=== PATIENT | female | born 1955 | race Caucasian/White ===

== ENCOUNTER 2020-09-11 12:39 | Inpatient (IN) | payer SELFPAY ==
[2020-09-11] MEDS ORDERED: Morphine 4 MG/ML VIAL ONE ×2 (14:06→20:53)
--- NOTE | 2020-09-11 14:08 | HP ---
HISTORY OF PRESENT ILLNESS: Demetria Gastelum is a 65-year-old female, who lives alone in [place], presented to [place] with 2 days of abdominal pain in the right upper quadrant, nausea and vomiting. This did not radiate. She presented to the emergency room and had an ultrasound of her gallbladder noting a gallbladder wall thickening, but no pericholecystic fluid, no report of a sonographic Sharpe sign and no gallstones. Liver function tests were normal. She had a fever to 102 degrees. Chest x-ray was read as normal. The patient does smoke 5-10 cigarettes a day, but no acute process was noted. Her sats were noted to be slightly low. She was sent for consideration of cholecystectomy outpatient surgery, but after talking to her, I examined her. I think she needs more workup and she will be admitted for HIDA scan without ejection fraction to rule out acute cholecystitis and a CAT scan of the abdomen and pelvis. Rapid COVID screen will be obtained. ALLERGIES: NONE. SOCIAL HISTORY: Tobacco 5-10 cigarettes a day. Alcohol occasionally. PAST SURGICAL HISTORY: Tubal ligation. PAST MEDICAL HISTORY: Colonoscopy and she never has had. MEDICATIONS: None routinely. REVIEW OF SYSTEMS: Ten-point noncontributory. FAMILY HISTORY: Noncontributory. PHYSICAL EXAMINATION: HEAD EARS, EYES, NOSE AND THROAT: Unremarkable. LUNGS: Clear to auscultation. No wheezing. CARDIAC: Regular rate and rhythm without murmur or gallop. ABDOMEN: Soft. Tenderness in right upper quadrant. Mild guarding. No peritoneal signs. EXTREMITIES: Unremarkable. Sodium 135, potassium 3.6, BUN 7, creatinine 0.82. Liver function tests are normal. The patient's white count is 12, hemoglobin 13. ASSESSMENT AND PLAN: 1. Abdominal pain of uncertain etiology. We will obtain HIDA scan and CAT scan of the abdomen and pelvis. We will base further recommendations both on clinical course. 2. Admission with PPIs, Lovenox prophylaxis, incentive spirometer and activity. Await further testing. Job ID: [id number]
--- NOTE | 2020-09-11 17:34 | CT ---
CT Abdomen Pelvis W Con History: Right upper quadrant pain Comparison: Ultrasound same day Findings: Mild scarring in the lung bases. No significant pericardial effusion. Mild gallbladder wall distention without pericholecystic inflammation. There appears be a contained perforation of ruptured appendicitis. The cecum is in the right upper qu adrant of the abdomen along with the ruptured appendix which has a appendicolith at its base. The appendix is retrocecal. Appendicolith is best seen on coronal image 70 with the course of the appendi x extending craniad from 70-82 in the right upper quadrant on the coronal images. Lower thoracic spine compression deformities. No free intraperitoneal fluid. No hydronephrosis. There is some inflammation from the ruptured appendix extending along the retroper itoneum on the right ureter. Aortic contour is nonaneurysmal. Impression: 1. Ruptured appendicitis which is retrocecal and extends into the right upper quadrant of the abdomen with contained perforation containing small foci of gas within appendicolith at the appendiceal base. Surgical consultation advised. No drainable fluid collection. 2. Mildly distended gallbladder without evidence for acute cholecystitis. 3. Pancreatic duct size upper limits of normal with very mildly prominent intrahepatic biliary dilata tion can be seen with papillary stenosis.
--- NOTE | 2020-09-11 20:38 | NM ---
NM Hida (No EF) History: Concern for cholecystitis Comparison: CT exam same day Findings: Patient was pretreated with 1.2 mcg CCK. Subsequently patient was given 5.2 mCi technetium 99m mebrofenin. Imaging of the abdomen was performed. The gallbladder is visualized after adequate hepatic uptake of radiotracer. On the 2 hour delayed images the bowel is visualized. Impression: 1. Patent cystic and common bile ducts. 2. Mildly patulous distended gallbladder.
[2020-09-11] MEDS ORDERED: Ketorolac Tromethamine 30 MG/ML VIAL ONE (20:53)
[2020-09-11] MEDS ORDERED: Acetaminophen 500 MG TAB ONE (21:12)
[2020-09-11] MEDS ORDERED: Ketorolac Tromethamine 30 MG/ML VIAL IVP PRN (22:41)
[2020-09-11] MEDS: Sodium Chloride 0.9% 1,000 ML IV SCH (23:15)
[2020-09-12] MEDS: Piperacillin/Tazobactam 4.5 GM in Sodium Chloride 0.9% 100 ML IVPB SCH ×6 (00:40→18:05)
[2020-09-12 00:49] VITALS: BMI 21.9
[2020-09-12] MEDS: Morphine 4 MG/ML VIAL SLOW IVP PRN ×3 (06:42→18:05)
[2020-09-12] MEDS: Sodium Chloride 0.9% 1,000 ML IV SCH ×3 (06:45→14:02)
[2020-09-12] MEDS: Pantoprazole 40 MG VIAL IVP SCH ×3 (08:58→13:16)
[2020-09-12] MEDS ORDERED: Fentanyl 100 MCG/2 ML VIAL ONE ×2 (09:14→11:01)
[2020-09-12] MEDS ORDERED: Bupivacaine PF 0.5% 30 ML VIAL ONE (09:16)
[2020-09-12] MEDS ORDERED: Lidocaine 1% w/Epinephrine 1:100K 20 ML VIAL ONE (09:16)
[2020-09-12] MEDS ORDERED: Rocuronium Bromide 10 MG/ML (10ML VIAL) ONE (09:21)
[2020-09-12] MEDS ORDERED: Succinylcholine 200 MG/10 ml SYRINGE FS ONE (09:21)
[2020-09-12] MEDS ORDERED: Lidocaine 1% PF 5 ML VIAL ONE (09:21)
[2020-09-12] MEDS ORDERED: Ondansetron PF 4 MG/2 ML Vial ONE (09:21)
[2020-09-12] MEDS ORDERED: PROPOFOL 200 MG/20 ML VIAL ONE (09:21)
[2020-09-12] MEDS ORDERED: Ketorolac Tromethamine 30 MG/ML VIAL ONE (09:21)
[2020-09-12] MEDS ORDERED: Dexamethasone 20 MG/5 ML VIAL ONE (09:21)
--- NOTE | 2020-09-12 10:11 | PRG ---
DATE OF SERVICE: 09/12/2020 Ms. High underwent a HIDA scan yesterday because the admitting diagnosis was cholecystitis, although when she received transfer from [facility] [place], she had never had any biliary symptoms in the past. Review of the CAT scan revealed that she only had gallbladder wall thickening, but no gallstones and I was told that she had a sonographic positive Sharpe's, which was not recorded. CAT scan was obtained revealing appendicitis. This resulted at 1700 hours, however, I was not notified. When I became aware of the results at 2200 hours, decision was made to admit her and place her on intravenous antibiotics for her appendectomy today. HIDA scan was performed and was normal. The patient does not need cholecystectomy. The patient has been afebrile overnight. Her white count was 12 yesterday. Abdomen is soft, tenderness in the right abdomen. ASSESSMENT: Appendicitis with retrocecal appendix extending up towards the right upper quadrant. She has an appendicolith. PLAN: Laparoscopic appendectomy today. She understands risks and benefits and consents. Depending on the condition of her appendix and findings operatively, she may be able to go home later today or tomorrow. Job ID: [id number]
[2020-09-12] MEDS ORDERED: SUGAMMADEX SODIUM 200 MG/2 ML VIAL ONE (10:23)
[2020-09-12] MEDS ORDERED: traMADol HCl 50 MG TAB PO PRN ×2 (10:36)
[2020-09-12] MEDS ORDERED: Ibuprofen 600 MG TAB PO PRN (10:36)
[2020-09-12] MEDS ORDERED: HYDROmorphone 2 MG/ML VIAL SLOW IVP PRN (10:49)
[2020-09-12] MEDS ORDERED: Ondansetron HCl/PF 4 MG/2 ML Vial IVP PRN (10:49)
[2020-09-12] MEDS ORDERED: Promethazine HCl 25 MG/ML VIAL SLOW IVP PRN (10:49)
--- NOTE | 2020-09-12 11:46 | OP ---
DATE OF PROCEDURE: 09/12/2020 PREOPERATIVE DIAGNOSIS: Acute appendicitis. POSTOPERATIVE DIAGNOSIS: Acute appendicitis with small abscess. PROCEDURE PERFORMED: Laparoscopic video appendectomy, drainage of abscess, placement of a #19 Gold ALICIA drain. ANESTHESIA: General, local 0.5% Marcaine 30 mL mixed with 1% Xylocaine with epinephrine 20 mL. FINDINGS: Acute appendicitis, retrocecal, loculated with acute appendicitis, gangrenous. DESCRIPTION OF PROCEDURE: The patient was taken to the operating room, where under general anesthesia, abdomen was prepared with ChloraPrep and draped in routine fashion. De Luna catheter placed at the beginning of the procedure and removed at the end. Local anesthetic was infiltrated in the skin and subcutaneous tissue about all port sites. An infraumbilical incision made, pneumoperitoneum to 15 mmHg was obtained with a Veress needle, replaced with a 5 port and the laparoscope inserted. Right lateral subcostal incision made and a 5 port placed. Suprapubic incision made and a 12 port placed. Cecum, right colon mobilized medially. High retrocecal was an acutely inflamed gangrenous appendix with a small abscess. Abscess was evacuated. Appendix dissected free. Mesoappendix taken down with the LigaSure. Cecal stump divided with Endo-PAIGE blue load stapler. Staple line was hemostatic and secured. Appendix was placed in Endobag and removed. The abscess wall cavity irrigated thoroughly. Irrigant evacuated. Good hemostasis noted. A 19 Gold ALICIA drain placed in the right gutter and secured at its exit site in the right subcostal port site with 3-0 nylon. Sterile dressing applied. Irrigant and pneumoperitoneum evacuated. All instruments were removed after suprapubic fascia was approximated with 0 Vicryl GraNee needle. Skin incisions were approximated with interrupted subdermal 4-0 Monocryl and [place] glue applied. Job ID: [id number]
[2020-09-12] MEDS ORDERED: Enoxaparin Sodium 40 MG/0.4 ML SYRINGE SC SCH (21:00)
[2020-09-13] MEDS: Sodium Chloride 0.9% 1,000 ML IV SCH ×3 (00:40→14:42)
[2020-09-13] MEDS: Piperacillin/Tazobactam 4.5 GM in Sodium Chloride 0.9% 100 ML IVPB SCH ×4 (01:34→17:39)
[2020-09-13 06:38] LABS: #Basophils 0.1 thou/uL (0.0-0.2); #Monocytes 0.5 thou/uL (0.11-0.59); %Eosinophils 0.1 % (0.0-10.0); %Lymphocytes 11.8 % (21.0-51.0); %Monocytes 6.1 % (0.0-10.0); Hemoglobin 11.9 g/dL (12.0-16.0); Mean Corpuscular HGB CONC 32.7 g/dL (32.0-36.0); Mean Corpuscular Hemoglobin 32.4 pg (27.0-31.0); Mean Corpuscular Volume 99.2 fL (78.0-98.0); Platelet Count 190 thou/uL (130-400); RBC Distribution Width 13.4 % (11.5-14.5); Red Blood Cell (RBC) Count 3.69 mill/uL (4.20-5.40); White Blood Cell (WBC) Count 8.7 thou/uL (4.8-10.8)
[2020-09-13 07:01] LABS: Anion Gap 15 mmol/L (10-20); BUN (Urea Nitrogen) 12 mg/dL (9.8-20.1); Calc. Creatinine Clearance 72 mL/min (70-130); Calcium 8.5 mg/dL (7.8-10.44); Carbon Dioxide 23 mmol/L (23-31); Chloride 103 mmol/L (98-107); Glucose 131 mg/dL (80-115); Potassium 3.6 mmol/L (3.5-5.1); Sodium 137 mmol/L (136-145)
[2020-09-13] MEDS: Pantoprazole 40 MG VIAL IVP SCH (08:22)
[2020-09-13] MEDS: Morphine 4 MG/ML VIAL SLOW IVP PRN ×2 (08:22→16:37)
[2020-09-13] MEDS ORDERED: Polyethylene Glycol 3350 17 GM Packet PO SCH (09:00)
[2020-09-13 17:37] VITALS: BP 133/86; TEMP 98.3
[2020-09-13] MEDS ORDERED: Amoxicillin/Potassium Clav 500 MG TAB PO SCH (21:00)
--- NOTE | 2020-09-14 11:50 | DIS ---
DATE OF ADMISSION: 09/11/2020 DATE OF DISCHARGE: 09/13/2020 DISCHARGE DIAGNOSIS: Acute appendicitis with small abscess. DISCHARGE MEDICATIONS: 1. OTC Tylenol. 2. Motrin p.r.n. pain. 3. Ultram to fill if needed, #21 refill. 4. Augmentin 500 b.i.d. for 5 days. DISCHARGE INSTRUCTIONS: Follow up in 2-3 weeks. She can remove her own suture that held her drain in place. Drain removed prior to discharge. HISTORY: 65-year-old female with right upper quadrant pain presents to [facility], underwent ultrasound noting gallbladder wall thickness. No stones. ER doctor presented me that she had sonographic positive Sharpe sign, which was not recorded on the ultrasound report. When I saw her, her exam and history was atypical for biliary colic. Thus, she was admitted, underwent a HIDA scan that was normal. CAT scan of the abdomen and pelvis revealed appendicitis. The patient was taken for laparoscopic video appendectomy and postoperatively did fine. ALICIA drain was left overnight and removed at time of discharge, it had only serosanguineous drainage. Her white count returned to normal. She tolerated diet. She is sent home with Augmentin for 5 days, and follow up my office in 1-2 weeks. Diet and activity as tolerated. Shower and bathe whenever. Job ID: [id number]
[2020-09-16] MEDS ORDERED: Acetaminophen 500 MG TAB PO PRN (23:00)
== END 2020-09-13 19:25 | disposition home or self-care (01) | DRG 340 ==
LOC: SDC 12:39 → T4-A 14:01
PROVIDERS: ADMIT Specialist; ATTEND Specialist
PROC: 0DTJ4ZZ Resection of Appendix, Percutaneous Endoscopic Approach (ICD-10-PCS; principal; 2020-09-12)
PROC: 0D9J4ZZ Drainage of Appendix, Percutaneous Endoscopic Approach (ICD-10-PCS; 2020-09-12)
DX: K35.33 Acute appendicitis with perforation, localized peritonitis, and gangrene, with abscess (principal); K38.1 Appendicular concretions; F17.210 Nicotine dependence, cigarettes, uncomplicated; Z98.51 Tubal ligation status
CPT/HCPCS: 36415; 74177; 78226; 80048; 85025; 88304; 93005; 93010; A9537; C9113; J1100; J1885; J2270; J2405; J2543; J2704; J3010; J3490; S0020

== ENCOUNTER 2024-11-23 15:24 | Observation (INO) | payer MEDICARE ==
[~2024-11-23 15:24] MED LIST: Iopamidol-370 76% 500 ML MDV (1 ML CHARGE) ONE; Magnevist 469MG/ML 20 ML VIAL ONE
[2024-11-23 16:10] LABS: #Basophils 0.04 10x3/uL (0.0-0.2); #Eosinophils Less than 0.03 10x3/uL (0.0-0.7); %Basophils 0.4 % (0.0-1.0); %Lymphocytes 8.6 % (21.0-51.0); %Neutrophils 87.6 % (42.0-75.0); Hematocrit 38.3 % (36.0-47.0); Hemoglobin 12.8 g/dL (12.0-16.0); Mean Corpuscular HGB CONC 33.4 g/dL (32.0-36.0); Mean Corpuscular Hemoglobin 29.8 pg (27.0-31.0); Mean Corpuscular Volume 89.1 fL (78.0-98.0); Mean Platelet Volume 9.9 fL (7.4-10.4); Platelet Count 240 10x3/uL (130-400); RBC Distribution Width 13.4 % (11.5-14.5)
[2024-11-23 16:30] LABS: Lipase 27 U/L (8-78)
[2024-11-23 16:32] LABS: Acetaminophen Less than 10 mcg/mL (Less than 10); Alcohol Less than 10.0 mg/dL (Less than 10); Salicylate Less than 8.0 mg/dL (Less than 8.0)
[2024-11-23 16:34] LABS: ALT (SGPT) 8 U/L (Less than 34); AST (SGOT) 22 U/L (11-34); Albumin 4.2 g/dL (3.1-4.5); Alkaline Phosphatase 97 U/L (40-110); Anion Gap 15 mmol/L (10-20); BUN (Urea Nitrogen) 8 mg/dL (9.8-20.1); Bilirubin, Total 0.4 mg/dL (0.3-1.2); CK (CPK) 388 U/L (29-168); Calc. Creatinine Clearance 0 mL/min (70-130); Calcium 9.1 mg/dL (7.8-10.44); Carbon Dioxide 23 mmol/L (23-31); Chloride 98 mmol/L (98-107); Estimated GFR 95; Globulin 3.6 g/dL (2.4-3.5); Glucose 128 mg/dL (80-115); Potassium 4.1 mmol/L (3.5-5.1); Protein, Total 7.8 g/dL (5.8-8.1); Sodium 132 mmol/L (136-145)
[2024-11-23 16:35] LABS: Troponin I 0.036 ng/mL (< 0.028)
[2024-11-23 18:20] LABS: Bacteria/HPF None Seen HPF (None Seen); Bilirubin Negative (Negative); Blood, Urine 2+ (Negative); CAUTI Indications for Culture Alt mental st,lethar; Clarity Clear (Clear); Glucose, Urine (Dipstick) Normal (Negative); Ketone, Urine Trace mg/dL (Negative); Leukocyte Negative Leu/uL (Negative); Nitrite Negative (Negative); Protein, Urine (Dipstick) 100 mg/dL (Neg-Trace); RBC/HPF 0-3 HPF (0-3); Specific Gravity, Urine 1.011 (1.002-1.036); Squamous Epithelial 0-3 HPF (0-3); Urobilinogen Normal mg/dL (Less than 2); WBC/HPF 0-3 HPF (0-3); pH, Urine 5.5 (5.0-9.0)
[2024-11-23 18:21] LABS: Urine Culture Reflex No No
[2024-11-23 18:22] LABS: Amphetamine Not Detected (NotDetected); Barbiturates Screen Not Detected (NotDetected); Benzodiazepine Screen Not Detected (NotDetected); Cocaine Metabolite Screen Not Detected (NotDetected); Methadone Not Detected (NotDetected); Methamphetamine Not Detected (NotDetected); Opiate Screen Not Detected (NotDetected); Oxycodone Screen Not Detected (NotDetected); Phencyclidine (PCP) Not Detected (NotDetected); THC/Cannabinoid Screen Detected (NotDetected); Tricyclic Screen Not Detected (NotDetected)
[2024-11-23] MEDS ORDERED: Aspirin Chewable 81 MG TAB ONE (18:58)
[2024-11-23 19:56] LABS: Troponin I 0.057 ng/mL (< 0.028)
[2024-11-23] MEDS ORDERED: Lorazepam 2 MG/ML VIAL SLOW IVP PRN (20:07)
[2024-11-23] MEDS ORDERED: Acetaminophen 650 MG Suppository PR PRN (20:09)
[2024-11-23] MEDS ORDERED: Calcium Carbonate 500 MG ChewTAB PO PRN (20:09)
[2024-11-23] MEDS ORDERED: Ondansetron PF 4 MG/2 ML Vial IVP PRN (20:09)
[2024-11-23] MEDS ORDERED: Acetaminophen 325 MG TAB PO PRN (20:09)
[2024-11-23] MEDS ORDERED: Ondansetron ODT 4 MG TAB PO PRN (20:09)
[2024-11-23] MEDS: Famotidine/PF 20 mg/2ml Vial SLOW IVP SCH (23:39)
[2024-11-23] MEDS: Famotidine 20 MG TAB PO SCH (23:46)
[2024-11-24 00:26] VITALS: BMI 18.7
[2024-11-24 00:49] LABS: Troponin I 0.053 ng/mL (< 0.028)
[2024-11-24 04:29] LABS: #Basophils 0.04 10x3/uL (0.0-0.2); %Basophils 0.6 % (0.0-1.0); %Eosinophils 0.4 % (0.0-10.0); %Lymphocytes 28.2 % (21.0-51.0); %Monocytes 6.9 % (0.0-10.0); %Neutrophils 63.6 % (42.0-75.0); Hematocrit 36.9 % (36.0-47.0); Hemoglobin 12.4 g/dL (12.0-16.0); Mean Corpuscular HGB CONC 33.6 g/dL (32.0-36.0); Mean Corpuscular Hemoglobin 29.9 pg (27.0-31.0); Mean Corpuscular Volume 88.9 fL (78.0-98.0); Mean Platelet Volume 10.6 fL (7.4-10.4); Platelet Count 234 10x3/uL (130-400); RBC Distribution Width 13.2 % (11.5-14.5); Red Blood Cell (RBC) Count 4.15 mill/uL (4.20-5.40)
[2024-11-24 04:44] LABS: Troponin I 0.057 ng/mL (< 0.028)
[2024-11-24 04:49] LABS: Anion Gap 15 mmol/L (10-20); BUN (Urea Nitrogen) 8 mg/dL (9.8-20.1); Calc. Creatinine Clearance 61 mL/min (70-130); Calcium 8.9 mg/dL (7.8-10.44); Carbon Dioxide 24 mmol/L (23-31); Chloride 104 mmol/L (98-107); Estimated GFR 95; Glucose 97 mg/dL (80-115); Potassium 3.5 mmol/L (3.5-5.1); Sodium 139 mmol/L (136-145)
[2024-11-24] MEDS ORDERED: FLU (Fluad Triv) TS24-25 (65UP)/MF59C/PF 45 MCG/0.5 ML Syringe IM ONE (09:00)
[2024-11-24] MEDS: levETIRAcetam 500 MG TAB PO SCH (10:02)
[2024-11-24 13:02] VITALS: TEMP 98.1
[2024-11-24] MEDS: Aspirin 81 mg Enteric Coated Tablet PO SCH (16:09)
[2024-11-24 16:46] VITALS: BP 125/76
== END 2024-11-24 16:25 | disposition home or self-care (01) ==
LOC: ERS 15:24 → 2SE 20:10
PROVIDERS: ADMIT Student in an Organized Health Care Education/Training Program; ATTEND Internal Medicine
DX: S22.42XA Multiple fractures of ribs, left side, initial encounter for closed fracture (principal); R53.1 Weakness; R41.2 Retrograde amnesia; F17.290 Nicotine dependence, other tobacco product, uncomplicated; R79.89 Other specified abnormal findings of blood chemistry; G93.41 Metabolic encephalopathy; E87.1 Hypo-osmolality and hyponatremia; F12.10 Cannabis abuse, uncomplicated; Z79.82 Long term (current) use of aspirin; Z90.49 Acquired absence of other specified parts of digestive tract; Z98.890 Other specified postprocedural states; Z79.899 Other long term (current) drug therapy; X58.XXXA Exposure to other specified factors, initial encounter
CPT/HCPCS: 70450; 70553; 71045; 71260; 76376; 80048; 80306; 80307 ×2; 81001; 82140; 82550; 82962; 83605; 83690; 84484 ×3; 85025; 93005; 93880; 94760; 96374; 99285; G0378 ×3; J3490; Q9967; 36415; 36416; 80053; 84443